=== PATIENT | female | born 1945 | race Caucasian/White ===

== ENCOUNTER 2017-02-24 12:30 | Inpatient (IN) | payer MEDICARE, OTHER ==
[~2017-02-24] VITALS: Ht 157.5 cm; Wt 90.0 kg
--- NOTE | ~2017-02-24 | PN ---
PATIENT'S NAME: AMADO BARRETO [facility] AGE: 72 Y [address] ROOM: [address] [address] LOCATION: [facility] [place] ADMIT DATE: 02/24/2017 Progress Notes DISCHARGE DATE: FAMILY PHYSICIAN: SUSIE ONEILL MD ATTENDING PHYSICIAN: Elin FRANKLIN DATE OF SERVICE: 02/28/2017 PRINCIPAL DIAGNOSES: Choledocholithiasis as well as acute cholecystitis status post ERCP status post cholecystectomy as well as intraoperative cholangiogram. SECONDARY DIAGNOSES: 1. Myelodysplastic syndrome. 2. Breast cancer status post resection with axillary dissection. 3. Obesity. HOSPITAL COURSE: This is a 72-year-old lady with a past medical history of breast cancer status post resection as well as radiation MDS and obesity presented from [facility] with abdominal pain. She was found to have acute cholecystitis as well as choledocholithiasis. She underwent ERCP, which did not reveal any stone, but a stent was placed. Surgical consultation was made, and the patient was taken to the OR for her laparoscopic cholecystectomy as well as intraoperative cholangiogram. She did tolerate the procedure well. Postsurgically, she was left with 1 drain, which continues to drain serosanguineous fluid. She had acute blood loss anemia after the surgery and required 1 unit of blood transfusion. She does have leukopenia, anemia, and thrombocytosis secondary to her MDS. She postoperatively also developed and CHAR. She appeared euvolemic on physical exam, and Nephrology consultation was made. They were of the belief she was probably hypertensive in the surgery or her blood pressures were dropped very quickly from 209 to about 90, which led to ATN. This suggested if the creatinine remains same tomorrow, which is 1.7, she can be discharged home with followup with them. MD FINESSE RON/natalio /[id number] d: t: 03/01/17 1126, PROGRESS NOTES
--- NOTE | ~2017-02-24 | HP ---
PATIENT'S NAME: AMADO BARRETO [facility] AGE: 72 Y [address] ROOM: [place] [id number] LOCATION: [facility] [place] ADMIT DATE: 02/24/2017 History & Physical DISCHARGE DATE: FAMILY PHYSICIAN: PHYSICIAN, UNKNOWN ATTENDING PHYSICIAN: Elin FRANKLIN DATE OF SERVICE: CHIEF COMPLAINT: Acute cholecystitis with possible choledocholithiasis. HISTORY OF PRESENT ILLNESS: The patient is a 72-year-old female with past medical history of breast cancer, status post resection, MDS, and obesity, who presents here from [facility] with cholecystitis and possible choledocholithiasis. The patient reports that for the past few days, she has been experiencing vague abdominal and chest discomfort. The patient went to the emergency department and was initially worked up for atypical chest pain. During her course, cardiac enzyme was normal and EKG was unremarkable. However, on further investigation, the patient was found to have abdominal pain. CT abdomen was acquired, which showed cholelithiasis with cholecystitis and suspected choledocholithiasis. The patient was started on Flagyl and Levaquin and was transferred to our hospital for possible ERCP. The patient denies nausea or vomiting. Reports of epigastric tenderness and right upper quadrant pain. She describes the pain as dull and radiating to her back. She denies nausea or vomiting. She reports of chills but denies fever. 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 PAST MEDICAL HISTORY: 1. MDS. 2. Breast cancer, status post resection with axillary dissection. 3. Obesity. PAST SURGICAL HISTORY: Mastectomy, appendectomy, and femur fracture with repair. FAMILY HISTORY: No significant family history. SOCIAL HISTORY: The patient denies use of alcohol and smoking. 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 [facility]GE: 72 Y [address] ROOM: [address] [address] LOCATION: [facility] [place] ADMIT DATE: 02/24/2017 History & Physical DISCHARGE DATE: FAMILY PHYSICIAN: PHYSICIAN, UNKNOWN ATTENDING PHYSICIAN: Elin FRANKLIN ALLERGIES: PENICILLIN, DOES NOT REMEMBER WHAT KIND OF REACTION THAT IT GAVE. SHE REPORTS THAT SHE HAD PENICILLIN REACTION AT HER TEENAGER AGE. MEDICATIONS: 1. Calcium carbonate 1 tab. 2. Vitamin B12 supplement. 3. Darbepoetin kelly 300 mcg subcu q.30 days, last dose on last . 4. Ibuprofen. 5. Latanoprost drops 2.5 mL. 6. [place]-3 fatty acid. REVIEW OF SYSTEMS: Ten system were reviewed. All negative except above. PHYSICAL EXAMINATION: VITAL SIGNS: Afebrile. Vital signs stable. GENERAL APPEARANCE: The patient is alert and awake, in no acute distress. HEENT: Moist oral mucosa. No JVD. LUNGS: Clear to auscultation. No rhonchi, rales, or wheezing heard. HEART: Regular rate and rhythm. No murmurs, rubs, or gallops. ABDOMEN: Soft, nondistended. Mild epigastric tenderness and mild right upper quadrant tenderness with positive Munoz sign. Bowel sounds present. No rebound tenderness. No guarding. EXTREMITIES: Left upper extremity is swollen, etiology secondary to lymphedema. NEWS VIDEO EDITOR: Alert and oriented x3. Motor and sensory grossly intact. LABORATORY DATA: White blood cell count of 12.2, hemoglobin of 9.1, and platelet count of 825. Sodium of 136, potassium of 4.2, and a creatinine of 1.36. UA is unremarkable. PT/INR 1.1. BNP of 219. Bilirubin of 1.16. All these labs were from the outside hospital. ASSESSMENT AND PLAN: 1. Cholecystitis with possible choledocholithiasis, concerning for cholangitis. We will also acquire blood culture and lactate. 2. The patient was given Levaquin and Flagyl at outside hospital. We will change Levaquin and Flagyl to meropenem due to broader spectrum coverage. Continue IV fluids. 3. GI on board to acquire MRCP to further investigate the PATIENT'S NAME: AMADO BRARETO [facility] AGE: 72 Y [address] ROOM: [place] [address] LOCATION: [facility] [place] ADMIT DATE: 02/24/2017 History & Physical DISCHARGE DATE: FAMILY PHYSICIAN: PHYSICIAN, UNKNOWN ATTENDING PHYSICIAN: Elin FRANKLIN choledocholithiasis. 4. After MRCP, the patient can be on a low-fat diet and will keep n.p.o. after midnight for possible ERCP. 5. Myelodysplastic syndrome, stable. She follows Dr. Nav Kaminski as an outpatient, and she takes epoetin kelly. Last dose on . She takes it every 30 days. 6. Obesity. Ongoing. 7. History of breast cancer, status post mastectomy. Greater than 30 minutes was spent on plan and care. The patient is full code on admission. Plan and care was discussed with Dr. Rothman, and the patient and her . MD PATRICIA BROWER/natalio /[id number] D: 025 T: 805 HISTORY & PHYSICAL
--- NOTE | ~2017-02-24 | HP ---
PATIENT'S NAME: AMADO BARRETO [facility] AGE: 72 Y [address] ROOM: [address] [address] [place] [facility] [place]MIT DATE: 02/24/2017 History & Physical DISCHARGE DATE: FAMILY PHYSICIAN: PHYSICIAN, UNKNOWN ATTENDING PHYSICIAN: Elin FRANKLIN DATE OF SERVICE: ADDENDUM: This is an addendum for my initial H and P. At the outside hospital, the patient's D-dimer was noted to be elevated, as other workup of atypical chest pain, CT angio was done and did not show pulmonary embolism, but however, it showed some incidental nodule measuring 7- mm. We will discuss the finding with the patient and recommend follow up as outpatient with repeat imaging. MD PATRICIA BROWER/natalio /[id number] D: [id number] T: [id number] HISTORY & PHYSICAL
--- NOTE | ~2017-02-24 | CON ---
[facility] 72 Y [address] ROOM: [place] [address] LOCATION: [facility] [place] ADMIT DATE: 02/24/2017 Consultation DISCHARGE DATE: FAMILY PHYSICIAN: SUSIE ONEILL MD ATTENDING PHYSICIAN: Elin FRANKLIN DATE OF CONSULTATION: 02/24/2017 REFERRING PHYSICIAN: Benjamin Rothman MD REFERRING PROVIDER: Ronna Worthington MD. REASON FOR CONSULTATION: Possible choledocholithiasis. HISTORY OF PRESENT ILLNESS: This is a pleasant 72-year-old female with past medical history of breast cancer, status post resection, MDS, and obesity. The patient was transferred from [place] with cholecystitis as well as possible choledocholithiasis. The patient reports having vague abdominal discomfort and chest pain over the past few weeks. The patient presented to the emergency room. Initially worked up for atypical chest pain, which was negative. A CT was completed of her abdomen showing cholelithiasis with cholecystitis as well as suspected choledocholithiasis. The patient was started on Flagyl and Levaquin and was transferred to [facility] for further definitive care. The patient was seen and examined. She does report significant midepigastric tenderness as well as right upper quadrant discomfort. She does state that this pain is dull, though can be come sharp and radiates in to her back. She does state that she had nausea feeling. She denies any vomiting or reported fever. She did feel "chilled." She denies any chest pain, chest pressure, shortness of breath, abdominal pain, nausea, or vomiting at this time. PAST MEDICAL HISTORY: MDS; breast cancer, status post resection; obesity. PAST SURGICAL HISTORY: Mastectomy, appendectomy, femur fracture with repair. 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 Denies any alcohol or tobacco use. FAMILY HISTORY: The patient denies any gastrointestinal diseases or cancers per her [facility]GE: 72 Y [address] ROOM: [place] [address] LOCATION: [facility] [place] ADMIT DATE: 02/24/2017 Consultation DISCHARGE DATE: FAMILY PHYSICIAN: SUSIE ONEILL MD ATTENDING PHYSICIAN: Elin FRANKLIN recollection. ALLERGIES: PENICILLINS AND LATEX. CURRENT MEDICATIONS: Please refer to the medication administration record. REVIEW OF SYSTEMS: A 10-point review of systems was completed. All were negative except for those identified in the history of present illness. PHYSICAL EXAMINATION: GENERAL: A very pleasant, 72-year-old female, who appears to be in mild acute distress secondary to pain. VITAL SIGNS: Temperature 97.6, pulse is 76, respirations 20, blood pressure 144/69, oxygen saturations 99% on room air. SKIN: [place], warm, dry. No jaundice. HEENT: Head is normocephalic and atraumatic. Pupils are equal, round, and reactive to light. Sclerae are clear. Nonicteric. Oral mucosa is pink and moist. No thyromegaly. NECK: Soft and supple. CARDIOVASCULAR: Regular. Normal S1, S2. RESPIRATORY: Respirations even and unlabored. LUNGS: Clear to auscultation. ABDOMEN: Soft, round, mildly tender in the midepigastric as well as right upper quadrant. Bowel sounds positive x4 quadrants. MUSCULOSKELETAL: No muscle weakness or atrophy. EXTREMITIES: No clubbing, cyanosis, or edema. NEUROLOGICAL: Grossly nonfocal. LABORATORIES AND DIAGNOSTICS: White blood cell count of 12.2, hemoglobin of 9.1, and platelets of 825. Sodium 136, potassium 4.2, creatinine 1.36. INR was 1.1. Bilirubin of 1.16. The patient did undergo a CT abdomen and pelvis. These images were pushed to [facility] and reviewed with Dr. Benjamin Rothman, as well as Dr. Joseph Jacques. Positive for cholelithiasis with thickened gallbladder wall noted. Dilated CBD, though questionable choledocholithiasis due to unclear imaging on the study. ASSESSMENT AND PLAN: Again, this is a very pleasant 72-year-old female, who presents after being transferred from [facility] with abdominal pain and nausea. The patient did undergo CT abdomen and pelvis showing cholecystitis with possible PATIENT'S NAME: AMADO BARRETO [facility] AGE: 72 Y [address] ROOM: [place] [address] LOCATION: [facility] [place] ADMIT DATE: 02/24/2017 Consultation DISCHARGE DATE: FAMILY PHYSICIAN: SUSIE ONEILL MD ATTENDING PHYSICIAN: Elin FRANKLIN choledocholithiasis. At this time, we will place the patient on antibiotics for the concern of cholangitis. The CT scan was reviewed with Dr. Joseph Jacques with further imaging needed to rule out choledocholithiasis. At this time, the patient will go forth with an MRCP. The patient will continue to stay n.p.o. until further investigation. If MRCP is positive, we will go forth with an ERCP. This was explained in depths with the patient as well as the patient's who is at bedside, they verbalize understanding. Further recommendations to be given status post receipt of MRCP. Thank you for this consult and allowing us to participate in the care of this patient. We will continue to monitor, evaluate, and treat as appropriate. JEFF STAHL APRN FOR MD ABDOULAYE WOLF/modl /[id number] d: 02/25/172115 t: 03/02/171904, CONSULTATION REPORT
--- NOTE | ~2017-02-24 | CON ---
PATIENT'S NAME: AMADO BARRETO [facility] AGE: 72 Y [address] ROOM: [address] [address] [place] [facility] [place]: 02/24/2017 Consultation DISCHARGE DATE: FAMILY PHYSICIAN: SUSIE ONEILL MD ATTENDING PHYSICIAN: Elin FRANKLIN DATE OF CONSULTATION: 02/28/2017 REFERRING PHYSICIAN: Benjamin Rothman MD REASON FOR CONSULTATION: Acute kidney injury versus acute kidney injury on chronic kidney disease. REFERRING PHYSICIAN: Jens Barajas MD. HISTORY OF PRESENT ILLNESS: A 72-year-old lady with history of myelodysplastic syndrome and breast cancer, status post resection, presented at [facility] with vague right- sided chest pain along with upper abdominal pain. Found to have cholecystitis and possible choledocholithiasis. Transferred here for ERCP and afterwards a laparoscopic cholecystectomy. During her course of the hospital admission, her creatinine slowly went up from 1.3 to 1.7. Nephrology consultation has been called for the same. Her baseline creatinine is unknown and we do not have any previous records, but the patient follows with an oncologist/office executive at [place], Dr. Oneill who told the patient that her kidney function was normal about couple of weeks back; however when she was transferred from [facility], her creatinine was 1.3 which went up to 1.4, then 1.6. The patient received a dose of Bumex yesterday for possible fluid overload and creatinine went up further to 1.7. Urine output in the last 24 hours is about 1050 mL documented; however, the patient's is frequently dumping the urine in the commode, which makes the intake and output relatively unreliable. The patient at this point appears to be euvolemic, does not have significant dependent edema. No complaint of chest pain or significant shortness of breath. The patient had longstanding dyspnea on exertion and functional capacity is only few blocks, but has never been evaluated in the past. Denied any nausea, vomiting, or diarrhea. No fever, chills, or rigor. No history of any NSAIDS or any other nephrotoxins use in the last couple of days. However, when the patient came in on of this month, the blood pressure was 201/81, which dropped to 93/50 within next couple of hours, possibly by some antihypertensive medication. She does not check blood pressure at home; however, as per the , the blood pressure is generally in 140-150 range. Review of the vital signs here in the hospital shows that her systolic is mostly 90-100 range, which is relatively hypotension for her. REVIEW OF SYSTEMS: GENERAL: No fever. No chills or rigor. HEENT: No sore throat. No sinus congestion. CVS: No chest pain. No exertional shortness of breath. No leg swelling. RESPIRATORY: No shortness of breath. No cough. No wheezing. GENITOURINARY: No pain with urination. No increased frequency. No nocturia. GASTROINTESTINAL: Right upper quadrant abdominal pain during admission as mentioned in the HPI. No significant abdominal distention. No nausea or vomiting. NEUROLOGIC: No weakness. No seizures. SKIN: No rash. No itching. ALLERGIES: No seasonal allergy. No hayfever. ENDOCRINE: No heat intolerance. No cold intolerance. PSYCHIATRIC: No sadness. No crying spells. No history of panic attack. PATIENT'S NAME: AMADO BARRETO [facility] AGE: 72 Y [address] ROOM: [place] [address] [place] [facility] [place]: 02/24/2017 Consultation DISCHARGE DATE: FAMILY PHYSICIAN: SUSIE ONEILL MD ATTENDING PHYSICIAN: Elin FRANKLIN PAST MEDICAL HISTORY: 1. Myelodysplastic syndrome. 2. Breast cancer, status post resection and axillary dissection. 3. Obesity. PAST SURGICAL HISTORY: 1. Mastectomy. 2. Appendectomy. 3. Femur fracture with repair. FAMILY HISTORY: Noncontributory for any kidney disease or dialysis. SOCIAL HISTORY: Denies any smoking, alcohol use, or IV drug use. 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 MEDICATIONS: 1. Calcium carbonate 1 tab daily. 2. Vitamin B12 subcu injection. 3. Darbepoetin kelly. 4. Ibuprofen. 5. Latanoprost. 6. [place]-3 fatty acid. PHYSICAL EXAMINATION: VITAL SIGNS: Blood pressure 90 to 100 over 50 to 60, respiratory rate 18, pulse rate 80s, and saturation 95-97% on room air. No pain. GENERAL: Not in apparent distress. HEAD: Moist mucous membranes. Bilateral PERRLA, EOMI. NECK: No JVD, thyromegaly, or lymphadenopathy. CVS: S1 and S2 normal, regular rate and rhythm. No murmur, rub, or gallop. CHEST: Bilateral air entry equal. No wheeze or rales. ABDOMEN: Soft, nontender, nondistended. Bowel sounds present. EXTREMITIES: No cyanosis, clubbing, or jaundice. No dependent edema. MUSCULOSKELETAL: No limitation of range of motion. SKIN: No pallor, cyanosis, or icterus. FINANCE BUSINESS PARTNER: Alert and oriented x3. No gross findings. LABORATORY DATA: Lactate done on 02/27 is 1.5. ProBNP 1741. CBC: Hemoglobin 7, WBC 12.7, and platelets 490. Chemistry: Sodium 145, potassium 4.7, chloride 116, bicarbonate 19, BUN 34, creatinine 1.7, and glucose 98. Calcium 8.1, total protein 5.7, albumin 2.8, AST 63, ALT 88, alkaline phosphatase 109, and total bilirubin 1.3. INR 1.1 on 02/25/2017. Procalcitonin 0.41 today. UA and urine lytes are pending.PATIENT'S NAME: AMADO BARRETO [facility] AGE: 72 Y [address] ROOM: [place] [address] [place] [facility] [place]: 02/24/2017 Consultation DISCHARGE DATE: FAMILY PHYSICIAN: SUSIE ONEILL MD ATTENDING PHYSICIAN: Elin FRANKLIN ASSESSMENT AND PLAN: 1. Nonoliguric acute kidney injury versus acute kidney injury on chronic kidney disease. Baseline creatinine is unknown, although reports normal renal function couple of weeks back. We need to get records from Dr. Oneill's office at [place]. The patient's creatinine at this point is 1.7. We believe secondary to hemodynamic versus septic ATN, the patient's blood pressure was 200 which dropped to 90 within few hours on the , which might have precipitated the relative hypotensive episode resulting in decrease in oxygen delivery to the renal tubular cells resulting in necrosis. Acute tubular necrosis will take its course. Creatinine will stabilize for 1 or 2 days before we see any significant improvement. During my examination, the patient appears to be euvolemic, we do not see any reason for aggressive volume expansion versus dialysis at this point. The patient has been encouraged to take enough oral water p.o. the patient also has been explained about kidney disease and dysmotility to delay progression in case of chronic kidney disease. Avoiding nephrotoxins including NSAIDs and other contrast media and maintaining hemodynamic stability with good control of blood pressure and low-salt diet. 2. Cholecystitis with choledocholithiasis, status post laparoscopic cholecystectomy. The patient has J-Vac, but the drainage is dropping. Further management as per the surgical team. 3. Mild dysplastic syndrome. Follows with Dr. Oneill at [place]. Hemoglobin and platelets are stable at this point. The patient wants to follow up at [place] due to logistic issue/travel issues from her place. Thank you for allowing me to participate in this patient's care. We will closely monitor the patient's progress along with you. [facility] LAMIN DELATORRE MD /modl /[id number] d: 02/28/171849 t: 03/04/17 1229, CONSULTATION REPORT
--- NOTE | ~2017-02-24 | OR ---
PATIENT'S NAME: [facility] AGE: 72 Y [address] ROOM: [place] [address] [place] [facility] [place] DATE: 02/24/2017 OR/Procedure Report DISCHARGE DATE: FAMILY PHYSICIAN: SUSIE ONEILL MD ATTENDING PHYSICIAN: Elin FRANKLIN SURGEON: Jake Oliver MD TIRE CORD WEAVER: Carmen Stark PA-C. DATE OF PROCEDURE: 02/26/2017 PREOPERATIVE DIAGNOSIS: Cholelithiasis with possible cholecystitis. POSTOPERATIVE DIAGNOSES: Cholelithiasis with severe, acute, and chronic cholecystitis, severe fibrosis of the neck and infundibulum of the gallbladder. PROCEDURE PERFORMED: Laparoscopic cholecystectomy. ANESTHESIA: General endotracheal. ESTIMATED BLOOD LOSS: 100 mL. SPECIMEN: Gallbladder and stones. REASON FOR PROCEDURE: The patient is a 72-year-old female who was evaluated initially for some chest and upper abdominal pain. Eventually, she was found to have some mild elevation of her liver function tests. There was concern of cholecystitis, but also of choledocholithiasis. Yesterday, she underwent an ERCP with stent placement. We decided to proceed with a laparoscopic cholecystectomy. FINDINGS: The patient had a markedly distended and tense gallbladder. It was completely full of stones. The neck area was impacted with multiple stones and there was such a severe fibrotic reaction, we could not completely expose this area. PROCEDURE IN DETAIL: The patient was taken to the operating suite and placed in the supine position. After general endotracheal anesthesia was obtained, the abdomen was prepped with ChloraPrep and sterilely draped. Marcaine was infiltrated into the incision sites. A 2 cm transverse infraumbilical incision was made. The fascia was grasped and elevated and a Veress needle was used to obtain a pneumoperitoneum. An 11 mm trocar was then passed across the abdominal wall. Next, three 5 mm subcostal trocars were all placed under direct visualization. The gallbladder was quite distended and tense. Initially, we could not grasp it. We aspirated 60 mL of bile from the gallbladder which did at least decompress it enough that we could hold onto PATIENT'S NAME: YENI [facility]OT[facility] AGE: 72 Y [address] ROOM: [place] [address] [place] [facility] [place] DATE: 02/24/2017 OR/Procedure Report DISCHARGE DATE: FAMILY PHYSICIAN: SUSIE ONEILL MD ATTENDING PHYSICIAN: Elin FRANKLIN it. The fundus was grasped and elevated. The omentum was densely adherent to the gallbladder. On the upper body, we were able to peel this down without too much trouble and get a second grasper in the lower body of the gallbladder. There continued to be stones all the way down to the infundibulum and neck area. We were able to expose the cystic artery and staple this before dividing it. Unfortunately, as we worked down the infundibulum, the fibrosis around this area became more and more dense to where there was no real clear tissue planes and I was concerned about tearing the tissue. As I was dissecting through this, we actually tore the cystic duct. I was able to express a moderate-sized stone from it. At this point, I could not feel any more stones distally down the cystic duct, though I just did not feel like it was worth the risk of trying to dissect this area out. We went ahead and divided the cystic duct above the area of the tear. I then placed a PDS endoloop and positioned it right at the base of the longitudinal tear. I feel like this occluded it well, but this was about as far distally as I felt comfortable going without trying to dissect through the fibrosis. We then mobilized the gallbladder free of the liver bed using cautery. There was considerable fibrosis and scarring against the liver bed as well. We had some moderate oozing from the liver bed. There were no major bleeding issues. Once fully mobilized, the gallbladder was placed in an endo-retrieval bag. We did have to stretch the fascial opening at the umbilicus some considerable distance to allow removal of the gallbladder. We removed the few stones that had come out during the dissection. We then washed out the right upper quadrant. All irrigation was removed. We did leave a 15-Setswana Manjit drain in the liver bed and brought this out through one of the trocar openings. The rest of the trocars were withdrawn and the pneumoperitoneum was evacuated. The fascia at the umbilicus was closed with a Vicryl suture in a figure-of- eight fashion. The skin incisions were closed with subcuticular Monocryls. Benzoin, Steri-Strips, and gauze dressings were applied. POSTPROCEDURE PLAN: The patient will be sent to Recovery and then back to the floor. We will gradually advance her diet as tolerated. We will watch and make sure there was no evidence of bile leak from the drain. We will plan on rechecking her lab work, including a hemoglobin in the morning. She will need to have her stent removed in 1 to 2 months. MD DAYNE JONAS/natalio /[id number] d: 02/26/172046 t: 03/01/17 1007, OPERATIVE SUMMARY
--- NOTE | ~2017-02-24 | DS ---
PATIENT'S NAME: AMADO BARRETO [facility] AGE: 72 Y [address] ROOM: [address] [address] LOCATION: [facility] – [place] ADMIT DATE: 02/24/2017 Discharge Summary DISCHARGE DATE: 03/01/2017 FAMILY PHYSICIAN: Nav Kaminski MD ATTENDING PHYSICIAN: Ronna Worthington ADDENDUM: Please see progress note as dictated by Dr. Barajas for final diagnoses, secondary diagnoses, and hospital course. As an addendum to that dictation, I am going to add a diagnostic section. CONSULTANTS: Dr. Oliver, Dr. Moreland, and Dr. Rothman. RADIOLOGY REPORTS: 1. MRI of the abdomen without contrast with MRCP imaging on 02/24/2017 indicate choledocholithiasis with low signal material visualized in the proximal portion of the common bile duct. 2. Multiple gallstones in the cystic duct. 3. Mild hepatic biliary dilation without distention of the common hepatic duct. LABORATORY DATA: Includes lactate on admission was 1.5, sodium was 143, potassium 4.5, chloride 110, bicarb 27, glucose 87, calcium 7.9, BUN 25, creatinine 1.4, total bilirubin was 1.1, alkaline phosphatase 193, AST 224, ALT 213. Prior to discharge, sodium 144, potassium 4.3, chloride 114, bicarb 20, glucose 106, BUN 30, creatinine 1.5, albumin 2.9, phosphorus was 2.3. During her stay, creatinine carmela to 1.7 and then back down to 1.5 on the day of discharge. ProBNP on the was 1714. On admission, white blood cell count was 8.0, hemoglobin 7.6, hematocrit 24.0, platelets 747. White blood cell count did trend up to 16.4 and back down to 12.8 prior to discharge, hemoglobin was 7.3, hematocrit 22.6, platelets 485. Urinalysis was within normal limits. Random urine sodium was 101, potassium 26, osmolality was 578, urine creatinine was 142. PROCEDURES: Please see operative note by Dr. Oliver. DISCHARGE INSTRUCTIONS: The patient is discharged to home. Her diet is as tolerated and activity is as tolerated. She is to follow up with Dr. Kaminski, her oncologist on 03/09 at 3:00 p.m. She is to follow up with Dr. Oliver, her primary care physician on 03/11, and she is to return to [facility] for ERCP with stent removal on 03/30/2017, check- in at 8:30 a.m. for 9:30 procedure. The patient is to be n.p.o. at that time. DISCHARGE MEDICATIONS: 1. Fish oil 2000 mg daily. 2. Vitamin B12 1000 mcg daily. PATIENT'S NAME: AMADO BARRETO [facility] AGE: 72 Y [address] ROOM: [place] [address] LOCATION: [facility] [place] ADMIT DATE: 02/24/2017 Discharge Summary DISCHARGE DATE: 03/01/2017 FAMILY PHYSICIAN: Nav Kaminski MD ATTENDING PHYSICIAN: Ronna Worthington 3. Aranesp 300 mcg subcutaneously every month. 4. Ibuprofen 400 mg every 4 hours as needed. 5. Tums 2 tablets every 3 hours as needed. 6. Latanoprost drops 1 drop to the right eye at bedtime. We do appreciate participating in this patient's care, and thank you very much for the ability to serve them while hospitalized at [facility]. Time spent coordinating details of discharge was 27 minutes of which was spent coordinating with consulting physician and care management, completion of medication reconciliation, and education to the patient and family on the above-mentioned diagnoses. KERLINE BLANK FOR CARLOS ALBERTO BARAJAS MD DEBO/modl /[id number] d: 03/02/17618 t: 03/07/171955, DISCHARGE SUMMARY
--- NOTE | ~2017-02-24 | CON ---
[facility] 72 Y [address] ROOM: [id number] [place], [place] [address] LOCATION: [facility] [place] ADMIT DATE: 02/24/2017 Consultation DISCHARGE DATE: FAMILY PHYSICIAN: SUSIE ONEILL MD ATTENDING PHYSICIAN: Elin FRANKLIN DATE OF CONSULTATION: 02/25/2017 REFERRING PHYSICIAN: Benjamin Rothman MD CHIEF COMPLAINT: Cholelithiasis. HISTORY OF PRESENT ILLNESS: The patient is a 72-year-old female who initially presented to the [facility] with complaints of abdominal and chest pain. She initially underwent a cardiac workup that was uneventful. Eventually, she had a CT scan which showed cholelithiasis and some evidence of cholecystitis. They also suspected choledocholithiasis. She was eventually transferred to [facility] for further evaluation and treatment. Earlier today, the patient underwent an ERCP. No obvious stones were identified. They did leave a stent in place. I was asked to see her for consultation for possible cholecystectomy. On my arrival, the patient is status post ERCP. She states she has just some minimal discomfort. She denies nausea or vomiting. She has no previous history of known gallbladder problems, though she has had some vague discomfort in her abdomen off and on in the past that she wonders if it is not related. PAST MEDICAL HISTORY: Positive for myelodysplastic syndrome as well as a history of breast cancer. MEDICATIONS: Include: 1. Calcium carbonate. 2. Vitamin B12. 3. Darbepoetin. 4. Ibuprofen. 5. Latanoprost. 6. [place]-3. PREVIOUS SURGERIES: Include mastectomy with axillary dissection, appendectomy, and femur fracture repair. FAMILY HISTORY: Unremarkable. [facility]: [facility] 72 Y [address] ROOM: [address] [place], [place] [address] LOCATION: [facility] [place] ADMIT DATE: 02/24/2017 Consultation DISCHARGE DATE: FAMILY PHYSICIAN: SUSIE ONEILL MD ATTENDING PHYSICIAN: Elin FRANKLIN SOCIAL HISTORY: The patient lives with her . She denies alcohol or tobacco use. ALLERGIES: SOUNDS LIKE NO REAL KNOWN ALLERGY. SHE DOES REPORT POSSIBLE REACTION TO PENICILLIN A TEENAGER AND POSSIBLE REACTION TO LATEX, THOUGH THIS IS QUITE VAGUE AND HAS NEVER BEEN CONFIRMED. PHYSICAL EXAMINATION: GENERAL: The patient is a well-nourished, elderly female. She is alert and oriented. She looks appropriate for stated age. VITAL SIGNS: Temperature 98.2, blood pressure 151/66, pulse 77, respirations 12, and saturations are 97% on room air. HEENT: Normocephalic, atraumatic. Pupils are equal. There is no scleral icterus. External ears, nose, and eyelids are unremarkable. The oropharynx is clear without lesions or exudate. NECK: There are no masses or adenopathy. Breathing is nonlabored. LUNGS: Clear to auscultation without rales, rhonchi, or wheezing. HEART: Regular rate and rhythm. ABDOMEN: Soft and nondistended. She has good bowel sounds. I do not really appreciate any significant tenderness at this point. Certainly, no rebound or guarding. No obvious hernias. EXTREMITIES: No peripheral edema. No cyanosis or clubbing. There are no obvious deformities. She moves all 4 extremities well. LABORATORY WORK: White count 8.0, hemoglobin 7.6, and platelets 747. Total bilirubin 1.1. ALT 213, AST 224, and alkaline phosphatase 193. ERCP film showed the stent in place. An MRCP reviewed and showed multiple gallstones as well as some hint of choledocholithiasis. ASSESSMENT: A 72-year-old female with cholelithiasis and possibly some degree of cholecystitis. She has already had her ERCP with stenting. Her lab work is fairly unremarkable. I do think it is reasonable to go ahead with cholecystectomy. She is quite anemic to begin with, so we will have to monitor her hemoglobins carefully, and I will type and screen her before hand. The patient was agreeable, and we will plan on proceeding with laparoscopic cholecystectomy tomorrow. JEORME ESCALANTE MD PATIENT'S NAME: AMADO BARRETO [facility] AGE: 72 Y [address] ROOM: [place] [address] LOCATION: [facility] [place] ADMIT DATE: 02/24/2017 Consultation DISCHARGE DATE: FAMILY PHYSICIAN: SUSIE ONEILL MD ATTENDING PHYSICIAN: Elin FRANKLINTM/modl /[id number] d: 02/26/17 1459 t: 03/01/17 1004, CONSULTATION REPORT
[2017-02-24] MEDS ORDERED: FISH OIL 1,0001 EAC1 PO (15:20)
[2017-02-24] MEDS ORDERED: VITAMIN B-121000 MCG PO (15:21)
[2017-02-24] MEDS ORDERED: ARANESP SUB-Q (15:22)
[2017-02-24] MEDS ORDERED: ADVIL200 MG PO (15:24)
[2017-02-24] MEDS ORDERED: TUMS REGULAR ST1 TAB PO (15:24)
[2017-02-24] MEDS ORDERED: LATANOPROST2.5 ML OPHTH (15:25)
--- NOTE | 2017-02-24 16:31 | NUR ---
Pt is 72 y/o female admit for choledocolithiasis for hospitalist. Pt has allergies to PCN and latex. Resides at home with her . Red and yellow bracelet on. 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 Came from [facility] via ambulance. Pt alert and oriented x3. Pt has midline catheter placed to upper R arm since her arrival here. Plan is for GI consult.
--- NOTE | 2017-02-24 19:14 | NUR ---
Significant event: Patient is alert and oriented x3. VSS. on room air. IV to right AC placed by outside hospital. Midline placed in right upper arm here. Hx of masctectomy and axillary dissection to left, has lymphedema in left arm. Gets short of breath with activity.Has hx of right femur fx with rogelio in place. Uses cane for assist with ambulation, instructed patient to call for assistance while here in hospital. Complains of mostly of back pain, but does state that at times it is mid-epigastric. Decreased appetite and bloating. No nausea, vomiting, or diarrhea. Has myleodysplastic syndrome that she takes shots for every month. Is currently NPO, for MRCP. Depending on results, may have ERCP tomarrow. , Tomas at bedside and plans on staying the night. Cooperative with cares.
--- NOTE | 2017-02-25 04:20 | NUR ---
Significant Event:PT IS A/O X3. PT IS A SBA W/ CANE. MIDLINE TO R UPPER ARM. LYMPHODEMA AND HX OF LEFT BREAST CANCER- NO BP/ LAB DRAW FROM L SIDE. PT C/O PAIN TO BACK/ABD. DILAUDID GIVEN X2 THIS SHIFT LAST @ 0342 WITH GOOD RELIEF NOTED. PT ABLE TO REST WELL. PT HAS BEEN NPO SINCE 0 FOR ERCP TODAY. Follow up:ERCP TODAY W/ POSSIBLE STENT PLACEMENT AND CHOLECYSTECTOMY ON WEDNESDAY.
[2017-02-25 05:14] LABS: INR - (THERAPEUTIC) 1.1 (0.9-1.1); PROTIME 11.5 SECONDS (9.6-11.1)
[2017-02-25 05:24] LABS: ALBUMIN 3.3 gm/dL (3.5-5.0); ANION GAP 10.5 (10.0-19.0); CALCIUM 7.9 mg/dL (8.5-10.5); CREATININE 1.4 mg/dL (0.5-1.1); PHOSPHORUS 4.1 mg/dL (2.5-4.9); POTASSIUM 4.5 mMol/L (3.7-5.1); TOTAL BILIRUBIN 1.1 mg/dL (0.0-1.5); TOTAL PROTEIN 6.2 g/dL (6.0-8.4)
[2017-02-25 06:10] LABS: HEMOGLOBIN 7.6 g/dL (10.0-15.0); RBC SEE COMM M/uL (3.50-5.50)
[2017-02-25 06:11] LABS: MCHC 31.7 gm/dL (32.0-36.5); MCV SEE COMM fl (83.0-98.0)
[2017-02-25 06:12] LABS: MCH SEE COMM pg (27.0-34.0); MPV 12.1 fl (9.4-12.4); PLATELET COUNT 747 K/uL (150-450)
[2017-02-25 06:52] LABS: BANDED NEUTROPHIL # 1.3 K/uL (0.0-0.1); BANDED NEUTROPHILS % 16 %; LYMPHOCYTE # 1.7 K/uL (0.8-4.0); LYMPHOCYTE % 15 %; MONOCYTE # 0.6 K/uL (0.0-1.0)
[2017-02-25 07:04] LABS: ABSOLUTE NEUTROPHIL CT (ANC) 4.8 K/uL (1.8-7.8); SEGMENTED NEUTROPHIL # 3.5 K/uL (1.8-7.8); SEGMENTED NEUTROPHIL % 44 %
--- NOTE | 2017-02-25 13:42 | NUR ---
I have examined the student charting and find it acceptable. Leda BASSETT
--- NOTE | 2017-02-25 15:00 | NUR ---
SPOKE TO PATIENT AT THE BEDSIDE. HER SPOUSE IS SLEEPING ON THE COUCH IN HER ROOM. INTRODUCED CM AND OUR ROLE. PATIENT LIVES IN OWN HOME WITH HER SPOUSE HE CAN NOT SEE SO SHE HAS TO DO ALL OF THE DRINGIN. SHE REPORTS THAT HER CAR IS IN [place] AND SHE IS ASKING ME HOW SHE WILL GET TO [place] TO GET HER CAR. I EXPLAINED TO HER THAT THERE ARE SHUDDLE VANS THAT SHE CAN CONTACT TO TAKE THEM BUT IT IS VERY EXPENSIVE. 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 I SUGGESTED THAT SHE CONTACT SOMEONE IN THE [place], HER FRIENDS OR FAMILY. PATIENT TELLS ME THAT SHE DOES NOT HAVE FAMILY THAT LIVE NEAR BY BUT SHE HAS PEOPLE IN HER [place] THAT SHE CAN CALL, IT IS JUST THAT " I DIDN'T WANT TO BOTHER ANYONE. " SHE IS GOING TO CONTACT HER [place] AND SEE IF THERE IS SOMEONE WHO CAN COME AND GET HER. I WILL TOUCH BASE WITH HER TOMORROW TO SEE IF SHE HAS FOUND SOMEONE TO COME AND GET HER. WILL CONT TO FOLLOW NEEDED.
--- NOTE | 2017-02-25 16:27 | NUR ---
Significant Event: Patient is alert and oriented x3, forgetful and very soft spoken. Did have ECRP they did a brushing and placed a stent. Will have a lap jose david tomorrow with Dr. Oliver. Will have one more hourly vital sign left. Fenatnyl was given downstairs in PACU, but has not required any more pain medication since being back to the floor, denies pain. Denies nausea. Blood pressure has been in the 150-170's. Low as 140. Latex allergy. Up with 1PA and cane. Powergilde in the right upper arm- fluids infusing. NPO at midnight. Started on a few home meds. Holding heparin after midnight tonight for lap jose david in the am. D/C IV abx. Regular diet. Cooperative with cares. at the bedside.
--- NOTE | 2017-02-25 23:25 | NUR ---
Significant Event: AAOX3. NPO AFTER MIDNIGHT FOR LAP JAYLYN TOMORROW. SBA WITH CANE. DILAUDID ADMINISTERED X1 AT 2032 FOR C/O PAIN (05/01). MIDLINE TO RUE. PLEASANT AND COOPERATIVE WITH CARES. FAMILY AT BEDSIDE. HOLD HEPARIN AFTER MIDNIGHT. Follow up:
--- NOTE | 2017-02-26 00:54 | NUR ---
CARE OF PT TRANSFERRED TO SERJIO VOSS AT 0016
--- NOTE | 2017-02-26 04:08 | NUR ---
Significant Event: A&Ox3. CMS intact. RA lungs clear. VSS. Up to bathroom 1A with cane pt is unsteady on feet. NPO. Has a midline to R) upper extremity running NS at 100ml/hr. Denies pain. (Tomas) at bedside. Follow up: Laproscopic removal of Gallbladder scheduled for today. Pre-Op checklist started.
[2017-02-26 05:43] LABS: HEMOGLOBIN 8.1 g/dL (10.0-15.0); MPV 12.5 fl (9.4-12.4); RDW-CV 28.8 % (11.9-14.6); WBC 8.3 K/uL (4.0-11.0)
[2017-02-26 06:09] LABS: ALBUMIN 3.4 gm/dL (3.5-5.0); ANION GAP 14.8 (10.0-19.0); CALCIUM 7.7 mg/dL (8.5-10.5); CREATININE 1.3 mg/dL (0.5-1.1); POTASSIUM 4.8 mMol/L (3.7-5.1); TOTAL PROTEIN 6.7 g/dL (6.0-8.4)
[2017-02-26 06:11] LABS: TOTAL BILIRUBIN 0.8 mg/dL (0.0-1.5)
[2017-02-26 06:13] LABS: PLATELET COUNT 1109 K/uL (150-450)
[2017-02-26 06:14] LABS: HEMATOCRIT 26 % (33.0-46.0); RBC SEE COMM M/uL (3.50-5.50)
[2017-02-26 06:15] LABS: MCH SEE COMM pg (27.0-34.0); MCV SEE COMM fl (83.0-98.0)
[2017-02-26 06:17] LABS: MCHC 31.2 gm/dL (32.0-36.5)
[2017-02-26 06:56] LABS: ABSOLUTE NEUTROPHIL CT (ANC) 5.6 K/uL (1.8-7.8); BANDED NEUTROPHIL # 2.1 K/uL (0.0-0.1); BANDED NEUTROPHILS % 25 %; LYMPHOCYTE # 2.2 K/uL (0.8-4.0); LYMPHOCYTE % 26 %; MONOCYTE # 0.6 K/uL (0.0-1.0); SEGMENTED NEUTROPHIL # 3.5 K/uL (1.8-7.8); SEGMENTED NEUTROPHIL % 42 %
--- NOTE | 2017-02-27 04:28 | NUR ---
Significant Event: POD #1 from lap jose david. Pt A&Ox3, VERY ANXIOUS ABOUT EVERYTHING!!! Monitor BP's closely due to pt having lots of output from SHANIQUA drain (305 overnight); did have to change dressing around site 1 time, but remains C/D/I. VS remain stable overnight, RA. Around 0345, did finally get up to BSC w/1PA and cane. Need to start encouraging ambulation. Pt does have chronic N/T in extremities. 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 Will wake up c/o pain, but when you go in to check on her, she is back asleep. Midline IV in RONI. Still running NS @100 d/t blood pressures and SHANIQUA output; int ABx. Did have 1 emesis event last night. Spouse at bedside. Might d/c today? Unknown d/t SHANIQUA output and pain issues. Follow up: Encourage ambulation. Encourage food intake. Monitor BP's. Monitor SHANIQUA output.
[2017-02-27 05:24] LABS: MPV 12.3 fl (9.4-12.4)
[2017-02-27 05:38] LABS: CREATININE 1.6 mg/dL (0.5-1.1); POTASSIUM 4.7 mMol/L (3.7-5.1); TOTAL BILIRUBIN 0.9 mg/dL (0.0-1.5); TOTAL PROTEIN 5.8 g/dL (6.0-8.4)
[2017-02-27 05:39] LABS: ANION GAP 14.7 (10.0-19.0); CALCIUM 7.1 mg/dL (8.5-10.5)
[2017-02-27 05:48] LABS: WBC 16.4 K/uL (4.0-11.0)
[2017-02-27 05:50] LABS: PLATELET COUNT 600 K/uL (150-450); RBC SEE COMM M/uL (3.50-5.50)
[2017-02-27 05:53] LABS: HEMOGLOBIN 5.8 g/dL (10.0-15.0)
[2017-02-27 05:56] LABS: MCV SEE COMM fl (83.0-98.0)
[2017-02-27 05:57] LABS: MCH SEE COMM pg (27.0-34.0)
[2017-02-27 06:00] LABS: HEMATOCRIT 20 % (33.0-46.0)
[2017-02-27 06:10] LABS: BANDED NEUTROPHIL # 5.2 K/uL (0.0-0.1); BANDED NEUTROPHILS % 32 %; LYMPHOCYTE # 2.6 K/uL (0.8-4.0); LYMPHOCYTE % 16 %; MONOCYTE # 0.8 K/uL (0.0-1.0); SEGMENTED NEUTROPHIL # 7.7 K/uL (1.8-7.8); SEGMENTED NEUTROPHIL % 47 %
--- NOTE | 2017-02-27 15:43 | NUR ---
Significant Event: Patient has ambulated x3, but did have some shortness of breath. First unit of blood in and patient has second unit hanging and will be done prior to end of shift. Lab to be drawn 30 minutes after blood done. Bumex given in between units of blood per Dr. Garcai's orders. Patient still on 2 liters of oxygen per nasal cannula. [place] given times one at 0850 with relief noted. Patient sat up in chair for a while and is currently trying to take a nap and then will see what she can order for a soft diet for supper. Patient to be on strict I&O. Follow up: Continue to monitor.
[2017-02-27 18:53] LABS: HEMATOCRIT 25.9 % (33.0-46.0); HEMOGLOBIN 8.1 g/dL (10.0-15.0)
--- NOTE | 2017-02-28 04:20 | NUR ---
Significant Event:PT AAOX3.PLEASANT WITH ALL CARES AND STAFF. STAYS WTIH PT IN ROOM. PT UP WITH 1 ASSIST GB CANE. DOES WELL WIHT TRANSFERS DOES BECOME SOB. WEARS O2 AT 2L DURING NOC. PT MIDLINE TO RIGHT UPPER ARM WITH NO COMPLICATIONS. TAKES MEDICAIOTN WHOLE. 3 SITES ARE CDI. DRAINS SITE DOES HAVE SOME BLOODY DRAINAGE. SHANIQUA HAD 50ML OUT OF LIGHT RED BLOOD. PT USES CALL LIGHT APPROP. Follow up:
[2017-02-28 05:36] LABS: BASOPHIL % 0.1 %; EOSINOPHIL # 0.2 K/uL (0.0-0.5); EOSINOPHIL % 1.8 %; HEMATOCRIT 22.2 % (33.0-46.0); IMMATURE GRANULOCYTE # 0.3 K/uL (0.0-0.3); IMMATURE GRANULOCYTE % 2.1 %; LYMPHOCYTE # 1.2 K/uL (0.8-4.0); LYMPHOCYTE % 9.4 %; MONOCYTE # 1.6 K/uL (0.0-1.0); MONOCYTE % 12.4 %; MPV 12.1 fl (9.4-12.4); NEUTROPHIL # (ANC) 9.4 K/uL (1.8-7.8); NEUTROPHIL % 74.2 %; NRBC % 0.8 /100WBC (0-0.00); PLATELET COUNT 490 K/uL (150-450); WBC 12.7 K/uL (4.0-11.0)
[2017-02-28 05:37] LABS: MCH 30.8 pg (27.0-34.0); MCHC 31.5 gm/dL (32.0-36.5); MCV 97.8 fl (83.0-98.0); RBC 2.27 M/uL (3.50-5.50); RDW-CV 26.8 % (11.9-14.6)
[2017-02-28 05:59] LABS: ALBUMIN 2.8 gm/dL (3.5-5.0); CALCIUM 8.1 mg/dL (8.5-10.5); CREATININE 1.7 mg/dL (0.5-1.1); POTASSIUM 4.7 mMol/L (3.7-5.1); TOTAL PROTEIN 5.7 g/dL (6.0-8.4)
[2017-02-28 06:01] LABS: ANION GAP 14.7 (10.0-19.0); TOTAL BILIRUBIN 1.3 mg/dL (0.0-1.5)
--- NOTE | 2017-02-28 17:12 | NUR ---
Significant Event: Patient has been up in the chair and ambulating in the room and in the halls. Sherman given times one this a.m. after her shower with relief noted. Nephrology consulted and urine sample needed. Explained need for urine sample to patient. Patient verbalized understanding. Also found out that patient's has been emptying patient's urine for us. Explained that we need to be measuring patient's output and to notify us and we will record it and dump it. Patient has not had a BM today. Drank some prune juice to see if this would help it but has not wanted the suppository Dr. Garcia ordered for her. Follow up: Continue to monitor.
[2017-02-28 18:35] LABS: BILIRUBIN URINE NEGATIVE (NEGATIVE); BLOOD URINE NEGATIVE /UL (NEGATIVE); COLOR URINE YELLOW (YELLOW); GLUCOSE URINE NEGATIVE (NEGATIVE); KETONE URINE NEGATIVE (NEGATIVE); LEUKOCYTES URINE NEGATIVE /UL (NEGATIVE); NITRITE URINE NEGATIVE (NEGATIVE); PROTEIN URINE 30 mg/dL (NEGATIVE); SPEC GRAVITY URINE 1.015 (1.003-1.035); TURBIDITY URINE CLEAR (CLEAR); UROBILINOGEN URINE NORMAL (NORMAL)
[2017-02-28 18:49] LABS: BACTERIA URINE FEW (NEGATIVE); MUCUS URINE 1+ (NEGATIVE); RBC URINE NEGATIVE #/HPF (NEGATIVE); WBC URINE 0-2 #/HPF (NEGATIVE)
--- NOTE | 2017-03-01 03:30 | NUR ---
Significant Event:PT AAOX3.PLEASANT WITH STAFF AND CARES. DENIES PAIN WHEN ASKED. UP WITH SUPERVISION. WALKS IN DEGROOT WITH HER . DRESSING TO SHANIQUA DRAIN CHANGED. DRAINS HAD 60ML OF LIGHT RED BLOOD. OTHER 3 SITES CLEARN DRY AND INTACT. MIDLINE TO RIGHT UPPER ARM SL. TAKES MEDICATION WHOLE WITH NO COMPLICATIONS. USES CALL LIGHT APPORP. Follow up:
[2017-03-01 05:35] LABS: BASOPHIL % 0.2 %; EOSINOPHIL # 0.4 K/uL (0.0-0.5); EOSINOPHIL % 2.8 %; HEMATOCRIT 22.6 % (33.0-46.0); IMMATURE GRANULOCYTE # 0.3 K/uL (0.0-0.3); IMMATURE GRANULOCYTE % 2.2 %; LYMPHOCYTE # 1.5 K/uL (0.8-4.0); LYMPHOCYTE % 11.9 %; MCH 31.3 pg (27.0-34.0); MCHC 32.3 gm/dL (32.0-36.5); MONOCYTE # 1.4 K/uL (0.0-1.0); MONOCYTE % 11.1 %; MPV 12.5 fl (9.4-12.4); NEUTROPHIL # (ANC) 9.2 K/uL (1.8-7.8); NEUTROPHIL % 71.8 %; NRBC % 0.9 /100WBC (0-0.00); PLATELET COUNT 485 K/uL (150-450); RBC 2.33 M/uL (3.50-5.50); RDW-CV 25.9 % (11.9-14.6); WBC 12.8 K/uL (4.0-11.0)
[2017-03-01 05:39] LABS: HEMOGLOBIN 7.3 g/dL (10.0-15.0)
[2017-03-01 05:52] LABS: ALBUMIN 2.9 gm/dL (3.5-5.0); ANION GAP 14.3 (10.0-19.0); CALCIUM 8.5 mg/dL (8.5-10.5); CREATININE 1.5 mg/dL (0.5-1.1); PHOSPHORUS 2.3 mg/dL (2.5-4.9); POTASSIUM 4.3 mMol/L (3.7-5.1)
--- NOTE | 2017-03-01 12:33 | NUR ---
Student nurse provided patient cares from 0600 to 1230. Devaughn Diego RN, [facility] Instructor
--- NOTE | 2017-03-01 12:55 | NUR ---
D: Orders received for the patient to be discharged to home today. I: Dismissal instructions were prepared and reviewed with the patient and her virtually. The following information was discussed including Krames teaching sheets provided: Cholecystectomy Lap, discharge instructions, ERCP which is schedule at [facility] in 4 weeks March 30 and Preventing DVT. Discussed that the patient has no new prescriptions to fill and Follow up appointments with Dr. Oliver and Dr. Nav Kaminski in 1 week. R: The patient and her verbalized understanding of the dismissal education at the time of teaching with no further questions. P: The above information was shared with the primary nurse, charge nurse and the nurses aide that the dismissal education is complete. The patient is ready for discharge to the front door via wheel chair by nursing staff when ride is here.
--- NOTE | 2017-03-01 14:30 | NUR ---
Dismissed per w/c to car accomp.by & INDUSTRIAL DESIGN INTERN after discharge nurse did her teaching.
[2017-03-24] MEDS ORDERED: B COMPLEX1 EACH PO (10:19)
[2017-03-24] MEDS ORDERED: TYLENOL325 MG PO (10:21)
== END 2017-03-01 14:29 | disposition disaster alternative care site (69) | DRG 418 ==
LOC: GMSU 12:30
PROVIDERS: Internal Medicine Gastroenterology; Internal Medicine Nephrology; Nurse Practitioner Family; Physician Assistant; Surgery; ADMIT Internal Medicine
PROC: 0F798DZ Dilation of Common Bile Duct with Intraluminal Device, Via Natural or Artificial Opening Endoscopic (ICD-10-PCS; principal; 2017-02-25)
PROC: 0FT44ZZ Resection of Gallbladder, Percutaneous Endoscopic Approach (ICD-10-PCS; 2017-02-26)
PROC: 30233N1 Transfusion of Nonautologous Red Blood Cells into Peripheral Vein, Percutaneous Approach (ICD-10-PCS; 2017-02-27)
DX: K80.12 Calculus of gallbladder with acute and chronic cholecystitis without obstruction (principal); D62 Acute posthemorrhagic anemia; N17.9 Acute kidney failure, unspecified; D46.9 Myelodysplastic syndrome, unspecified; E66.9 Obesity, unspecified; Z68.35 Body mass index [BMI] 35.0-35.9, adult; Z85.3 Personal history of malignant neoplasm of breast; Z90.10 Acquired absence of unspecified breast and nipple
CPT/HCPCS: C1751; C1769; J0694; J1100; J1170; J1200; J1644; J2185; J2250; J2405; J2765; J3010; J7030; J7050; P9016

== ENCOUNTER → 2017-03-31 | Day surgery (SDC) | payer MEDICARE, OTHER ==
[~2017-03-31] VITALS: Ht 157.5 cm; Wt 83.0 kg
[~2017-03-31] MED LIST: ADVIL200 MG PO; ARANESP SUB-Q; B COMPLEX1 EACH PO; FISH OIL 1,0001 EAC1 PO; LATANOPROST2.5 ML OPHTH; TUMS REGULAR ST1 TAB PO; TYLENOL325 MG PO; VITAMIN B-121000 MCG PO
== END | disposition disaster alternative care site (69) ==
LOC: GPOC 03-24 11:00 → GEND 08:23 → EDSTATUS 11:00 → GEND 11:00
PROC: 0FC98ZZ Extirpation of Matter from Common Bile Duct, Via Natural or Artificial Opening Endoscopic (ICD-10-PCS; principal; 2017-03-31)
PROC: 0FPB8DZ Removal of Intraluminal Device from Hepatobiliary Duct, Via Natural or Artificial Opening Endoscopic (ICD-10-PCS; 2017-03-31)
DX: K80.50 Calculus of bile duct without cholangitis or cholecystitis without obstruction (principal); E66.9 Obesity, unspecified; N17.9 Acute kidney failure, unspecified; Z85.3 Personal history of malignant neoplasm of breast
CPT/HCPCS: C1769; J1100; J2250; J2405; J7030